=== PATIENT | male | born 1975 | race Caucasian/White ===

== ENCOUNTER → 2024-05-06 | Outpatient (REF) | payer BC ==
[~2024-05-06] MED LIST: MUPIROCIN 2% OINT 22 GM TUBE ONE
== END ==
LOC: WCC 08:00
PROVIDERS: ATTEND Nurse Practitioner Family
DX: T23.251A Burn of second degree of right palm, initial encounter (principal)

== ENCOUNTER → 2024-05-13 | Outpatient (REF) | payer BC | LOC: WCC 08:34 | PROVIDERS: ATTEND Nurse Practitioner Family | DX: T23.251A Burn of second degree of right palm, initial encounter (principal) ==

== ENCOUNTER → 2024-05-26 | Outpatient (REF) | payer BC | LOC: WCC 12:11 | PROVIDERS: ATTEND Nurse Practitioner Family | DX: T23.251A Burn of second degree of right palm, initial encounter (principal); I10 Essential (primary) hypertension ==